=== PATIENT | female | born 1945 | race Caucasian/White ===

== ENCOUNTER 2023-02-18 08:13 | Day surgery (SDC) | payer OTHER, MEDICARE ==
[~2023-02-18] VITALS: Ht 160.8 cm; Wt 92.1 kg
[2023-02-18] MEDS ORDERED: CEFAZOLIN 1 GM IVPB PREMIX 50 ML IV ONE (10:23)
[2023-02-18] MEDS ORDERED: MEPERIDINE 50 MG/ML VIAL ONE (10:34)
[2023-02-18] MEDS ORDERED: MIDAZOLAM HCL 5 MG/5 ML VIAL ONE (10:35)
[2023-02-18] MEDS ORDERED: ceFAZolin SODIUM 1 GM in D5W 100 ML IV ONE (10:45)
[2023-02-18 16:01] VITALS: BP_SYST 120
== END 2023-02-18 13:18 ==
LOC: SDS 08:13 → SMU 08:14 → SDS 13:18
PROVIDERS: ATTEND Internal Medicine Gastroenterology
DX: R13.10 Dysphagia, unspecified (principal); Z20.822 Contact with and (suspected) exposure to COVID-19
CPT/HCPCS: 43246; 82962; 36415; 99152; 87426; G0378; J0690; J2250; J7060; J2175